=== PATIENT | female | born 1955 | race Caucasian/White ===

== ENCOUNTER 2016-04-24 06:51 | Inpatient (IN) | payer OTHER ==
[~2016-04-24] VITALS: Ht 157.5 cm; Wt 81.2 kg
[2016-04-24] VITALS (8 sets, daily range): BP systolic 106–158; BP diastolic 57–95
[~2016-04-24 06:51] MED LIST: AMBIEN5 MG PO; HYZAAR 100-21 TABLET PO; LO-DOSE ASPIRIN81 M2 PO; MEVACOR40 MG PO; MOBIC15 MG PO; TENORMIN50 MG PO
[2016-04-24 19:12] LABS: HEMATOCRIT 35.1 % (36.0-46.0); MCV 86.2 FL (83-99)
[2016-04-25 03:42] VITALS: BP 116/63
[2016-04-25 08:16] VITALS: BP 122/76
[2016-04-25 11:37] VITALS: BP 122/71
[2016-04-25 12:34] LABS: ANION GAP 9 MEQ/L (2-14); CHLORIDE 101 MEQ/L (99-109); GFR ESTIMATE (CALCULATED) > 59 mL/min/; GLUCOSE 104 mg/dL (70-99); POTASSIUM 3.9 MEQ/L (3.7-5.4); SAMPLE HEMOLYSIS CHECK 0; SAMPLE ICTERIC CHECK 0; SAMPLE LIPEMIA CHECK 0; SODIUM 139 MEQ/L (136-147); UREA NITROGEN (BUN) 13 mg/dL (9-23)
[2016-04-25 16:01] VITALS: BP 126/67
[2016-04-25 20:07] VITALS: BP 124/66
[2016-04-26] VITALS: BP 130/67
[2016-04-26 04:00] VITALS: BP 133/69
[2016-04-26 08:06] VITALS: BP 112/73
[2016-04-26] MEDS ORDERED: XARELTO10 MG PO (08:57)
[2016-04-26] MEDS ORDERED: OXYCODONE HCL5 MG PO (08:57)
[2016-04-26 14:13] VITALS: BP 110/67
== END 2016-04-26 14:15 | disposition home health service (06) | DRG 470 ==
LOC: 2SOUTH 06:51 → 3WEST 13:36 → 2SOUTH 14:38 → 3WEST 04-26 14:15
PROVIDERS: Orthopaedic Surgery; Physician Assistant Surgical
PROC: 0SR903A Replacement of Right Hip Joint with Ceramic Synthetic Substitute, Uncemented, Open Approach (ICD-10-PCS; principal; 2016-04-24)
DX: M16.11 Unilateral primary osteoarthritis, right hip (principal); I10 Essential (primary) hypertension; G47.30 Sleep apnea, unspecified; E66.9 Obesity, unspecified; Z68.32 Body mass index [BMI] 32.0-32.9, adult; Z88.0 Allergy status to penicillin; Z23 Encounter for immunization
CPT/HCPCS: 80048; 85014; 85018; 97530 GP; J0131; J0690; J1885; J2250; J7050; J7120; S0020